=== PATIENT | female | born 1955 | race Caucasian/White ===

== ENCOUNTER → 2016-06-29 | Outpatient (CLI) | payer OTHER ==
--- NOTE | 2016-06-29 15:13 | REP ---
LEFT TOES, THREE VIEWS: HISTORY: Contusion. There is no acute fracture or dislocation. The joint spaces are normal in appearance. IMPRESSION: There is no acute fracture or dislocation. Signed by Amaury Pereira MD 06/29/2016 03:22 P
== END ==
LOC: M WUC 14:29
PROVIDERS: ATTEND Physician Assistant
DX: S90.122A Contusion of left lesser toe(s) without damage to nail, initial encounter (principal); X58.XXXA Exposure to other specified factors, initial encounter; Y92.9 Unspecified place or not applicable; Y93.9 Activity, unspecified; Y99.9 Unspecified external cause status

== ENCOUNTER → 2017-10-20 | Outpatient (CLI) | payer OTHER | LOC: M ONCR 10:03 | DX: C50.911 Malignant neoplasm of unspecified site of right female breast (principal) | CPT/HCPCS: G0463 ==

== ENCOUNTER → 2018-03-07 | Outpatient (CLI) | payer OTHER | LOC: M ONCR 13:41 | DX: C50.911 Malignant neoplasm of unspecified site of right female breast (principal) ==

== ENCOUNTER → 2018-03-16 | Outpatient (CLI) | payer OTHER ==
[~2018-03-16] MED LIST: ASPI1TAB15 PO; BUSP15TA47 PO; DEXA0.5E2 PO; DULO1CAP3 PO; HYDR25OIN TOP; IMOD2TAB16 PO; LANS30TA5 PO; LETR2.5T2 PO; LISI10TA4 PO; LOMO2.5T PO; LORA-243 PO; SIMV20TA2 PO
--- NOTE | 2018-03-23 13:44 | DEXA ---
AP SPINE L1 - L4 1.510 2.5 3.8 LT FEMUR TOTAL 1.148 1.1 2.1 LT NECK 0.925 -0.8 0.5 RT FEMUR TOTAL 1.216 1.6 2.6 RT NECK 1.004 -0.2 1.0 TOTAL BODY TOTAL OTHER COMMENTS: Normal bone densitometry of the spine and hips. The density of the spine has increased 1.0% since 09/30/2011. The density of the left hip has decreased 5.3% since 09/30/2011. The density of the right hip has decreased 0.7% since 09/30/2011. FOLLOW-UP: Recommendation for the next bone density exam: 5 years. RUBINA
== END ==
LOC: M WHC 10:15
PROVIDERS: ATTEND Internal Medicine Medical Oncology
DX: C50.111 Malignant neoplasm of central portion of right female breast (principal); Z79.811 Long term (current) use of aromatase inhibitors

== ENCOUNTER → 2018-04-27 | Outpatient (RCR) | payer OTHER ==
--- NOTE | 2018-03-30 15:25 | RADONC ---
RADIATION ONCOLOGY SIMULATION NOTE: DATE: 03/30/2018 CHART NUMBER: [id number] Ms. Farzaneh Hayes was taken to the CT scan for CT simulation of her right breast and supraclavicular carrasquillo. CT was accomplished without difficulty or discomfort. Radiation treatment planning is underway and radiation treatments will begin subsequently. An immobilization device was created and be used throughout the course of treatment. It was created without difficulty or discomfort. I was physically present throughout the course of CT simulation. [facility]
--- NOTE | 2018-04-18 10:52 | RADONC ---
RADIATION ONCOLOGY PROGRESS NOTE DATE OF SERVICE: 04/17/2018 CHART NUMBER: [id number]. PROGRESS NOTE: Ms. Farzaneh Hayes is presently at a dose of 540 cGy to her right breast and is tolerating treatments quite well at this point with no complaints related to her radiation therapy. She is having no breast or bone pain. REVIEW OF SYSTEMS: The patient's review of systems is noncontributory. She denies nausea, vomiting, fevers, chills, night sweats, diplopia, headaches, anxiety or depression, anorexia, weight loss, visual disturbances, chest pain, urinary or bowel difficulties, bone pain, or neurological problems. PHYSICAL EXAM: The patient's skin is in good condition with no evidence of radiation change present. There is no moist or dry desquamation. The remainder of her physical exam remains unchanged. Ms. Farzaneh Hayes is tolerating her treatments quite well, and radiation will continue as scheduled.
--- NOTE | 2018-04-24 11:44 | RADONC ---
RADIATION ONCOLOGY PROGRESS NOTE DATE OF SERVICE: 04/24/2018 CHART NUMBER: [id number]. PROGRESS NOTE: Ms. Farzaneh Hayes is presently at a dose of 1440 cGy to her right breast and is tolerating treatments quite well at this point with no significant complaints related to her radiation therapy other than some nipple tenderness. REVIEW OF SYSTEMS: The patient's review of systems is positive for nipple tenderness but is otherwise noncontributory. She denies nausea, vomiting, fevers, chills, night sweats, diplopia, headaches, anxiety or depression, anorexia, weight loss, visual disturbances, chest pain, urinary or bowel difficulties, bone pain, or neurological problems. PHYSICAL EXAM: The patient's skin is in good condition with no evidence of moist or dry desquamation. The remainder of her physical exam remains unchanged. Ms. Farzaneh Hayes is tolerating treatments quite well, and radiation will continue as scheduled.
== END ==
LOC: M ONCR 03-30 08:13
PROVIDERS: ATTEND Radiology Radiation Oncology
DX: C50.111 Malignant neoplasm of central portion of right female breast (principal)

== ENCOUNTER → 2018-05-25 | Outpatient (RCR) | payer OTHER ==
--- NOTE | 2018-05-01 16:24 | RADONC ---
RADIATION ONCOLOGY PROGRESS NOTE DATE: 05/01/2018 CHART NUMBER: [id number] PROGRESS NOTE: Ms. Farzaneh Hayes is presently at a dose of 1980 cGy to her right breast and is tolerating treatments quite well at this point with no complaints related to her radiation therapy. She is having no breast or bone pain. REVIEW OF SYSTEMS: The patient's review of systems is noncontributory. Denies nausea, vomiting, fevers, chills, night sweats, diplopia, headaches, anxiety or depression, anorexia, weight loss, visual disturbances, chest pain, urinary or bowel difficulties, bone pain, or neurological problems. PHYSICAL EXAMINATION: The patient's skin is in good condition with no evidence of moist or dry desquamation. The remainder of her physical exam remains unchanged. Ms. Farzaneh Hayes is tolerating treatments quite well and radiation will continue as scheduled.
--- NOTE | 2018-05-09 14:04 | RADONC ---
DATE: 05/08/2018 CHART NUMBER: [id number] Mrs. Hancock is currently receiving radiotherapy to the right breast for a diagnosis of stage IA woman with breast cancer and is currently at a dose of 2080 cGy of an anticipated 4860 cGy. This will be followed by an additional 1200 cGy to the partial mastectomy site. Thus far, the treatments are going quite well although the skin does show a 1-2+ hyper erythematous blush without any focal desquamation. The patient's breasts are somewhat pendulous and for the last several days she has been advised to not wear a bra. She is also putting some Telfa pads in the inframammary fold to avoid undue friction in that area. Her energy level is slightly diminished but she is still able to maintain most day-to-day activities without any alteration of her lifestyle. The remainder of the review of systems is essentially negative as she denies any other constitutional issues such as coughing, sputum production, hemoptysis, abdominal pain. EXAMINATION FINDINGS: The skin within the irradiated volume shows a 1-2+ erythematous blush without focal desquamation. The remainder of the physical examination is unchanged. IMPRESSION: Tolerating therapy relatively well. PLAN: Treatments to continue.
--- NOTE | 2018-05-16 19:39 | RADONC ---
RADIATION ONCOLOGY PROGRESS NOTE DATE OF SERVICE: 05/15/2018 CHART NUMBER: [id number]. PROGRESS NOTE: Tina Hayes is currently receiving local regional radiotherapy to the right breast for a diagnosis of stage IA breast cancer. Her current dose of radiotherapy is 3780 cGy of an anticipated 4860 cGy, and she is tolerating her therapy reasonably well with the exception of skin irritation. She has a marked hyper erythematous blush with small areas of focal desquamation in the inframammary fold. The nipple is quite erythematous. She uses Telfa pads involving the inframammary fold to avoid undue friction in that area. She applies silvadene to the affected skin and Aquaphor to the nipple area. The remainder of the review of systems reveals that she has no significant fatigue, nausea, vomiting, coughing, sputum production, hemoptysis, neurologic deficits, headache, anxiety or depression, abdominal problems, or genitourinary issues. EXAMINATION: The skin within the irradiated volume shows a brisk erythematous area with some focal moist desquamation in the inframammary fold. The nipple area also reveals quite erythematous and somewhat swollen skin with no significant focal breakdown. The remainder of the physical examination is unchanged. IMPRESSION: Tolerating therapy well. PLAN: Treatments to continue. MTDD
--- NOTE | 2018-05-23 07:55 | RADONC ---
RADIATION ONCOLOGY PROGRESS NOTE DATE OF SERVICE: 05/22/2018 CHART #: [id number] Ms. Moy is presently at a dose of 4680 cGy to her right breast and is tolerating treatments quite well at this point with no significant difficulties related to her radiation therapy. She has had no breast or bone pain. REVIEW OF SYSTEMS: The patient's review of systems is noncontributory. Denies nausea, vomiting, fevers, chills, night sweats, diplopia, headaches, anxiety or depression, anorexia, weight loss, visual disturbances, chest pain, urinary or bowel difficulties, bone pain, or neurological problems. PHYSICAL EXAMINATION: The patient's skin is in good condition with no evidence of moist or dry desquamation. The remainder of her physical exam remains unchanged. Ms. Moy is tolerating treatments quite well and radiation will continue as scheduled.
[~2018-05-25] MED LIST changes: +SILV1CRE60 TOP
== END ==
LOC: M ONCR 05-01 08:53
PROVIDERS: ATTEND Radiology Radiation Oncology
DX: C50.111 Malignant neoplasm of central portion of right female breast (principal)

== ENCOUNTER 2018-05-31 08:51 | Outpatient (RCR) | payer OTHER ==
--- NOTE | 2018-05-30 09:55 | RADONC ---
RADIATION ONCOLOGY PROGRESS NOTE DATE: 05/29/2018 CHART NUMBER: [id number] Ms. Farzaneh Hayes is presently at a dose of 5660 cGy to her primary site boost field and is tolerating treatments quite well at this point with no complaints related to her radiation therapy. She is having no significant skin or bone pain. REVIEW OF SYSTEMS: The patient's review of systems is noncontributory. She denies nausea, vomiting, fevers, chills, night sweats, diplopia, headaches, anxiety or depression, anorexia, weight loss, visual disturbances, chest pain, urinary or bowel difficulties, bone pain, or neurological problems. PHYSICAL EXAMINATION: The patient's skin is in good condition with no evidence of moist or dry desquamation. The remainder of her physical exam remains unchanged. Ms. Farzaneh Hayes is tolerating her treatments quite well and radiation will continue as scheduled.
--- NOTE | 2018-05-31 10:33 | RADONC ---
RADIATION ONCOLOGY TREATMENT SUMMARY DATE: 05/31/2018 CHART NUMBER: [id number] DIAGNOSIS: Right breast cancer. STAGE: IA, T1c, N1a, M0, grade 2, ER positive, ME positive, HER2/stephanie negative. ECOG PERFORMANCE STATUS: 0. TREATMENT SUMMARY: Ms. 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 We treated the patient to her right breast and lymph node drainage sites for a dose of 4860 cGy delivered in 27 fractions of 180 cGy each over 40 elapsed days from 04/13/2018 through 05/23/2018. The patient's right breast was treated on a linear accelerator utilizing a combination of 15X and 6X photons. A 3-D conformal technique was utilized with medial and lateral tangential carrasquillo. In addition the right supraclavicular and axillary region was treated utilizing a 3-D technique with anterior oblique and PA carrasquillo. Six MV photons were used on the anterior field and 15 MV photons were used on the posterior field. Following completion of 4860 cGy to the entire breast the primary site was boosted for an additional 1200 cGy delivered in six fractions of 200 cGy each from 05/24/2018 through 05/31/2018. The primary site boost was treated on a linear accelerator utilizing a 16 MeV electron beam prescribed to the 90% isodose line via en phos technique. This brought the primary site to a total dose of 6060 cGy delivered in 33 fractions over 48 elapsed days from 04/13/2018 through 05/31/2018. Ms. Farzaneh Hayes tolerated her treatments quite well and was able to complete therapy as prescribed without interruption. I have scheduled the patient to see me again in 1 month for further followup. She will also continue to be followed by her other physicians as well. Thank you for allowing us to participate in the care of this very pleasant woman. If I could be of any further assistance or provide you with any information, please free to contact me anytime. cc: MD Sierra White NP Joel Yellin, MD
== END 2018-06-25 ==
LOC: M ONCR 08:51
PROVIDERS: ATTEND Radiology Radiation Oncology
DX: C50.111 Malignant neoplasm of central portion of right female breast (principal)

== ENCOUNTER → 2018-07-05 | Outpatient (CLI) | payer OTHER ==
--- NOTE | 2018-07-05 11:09 | RADONC ---
RADIATION ONCOLOGY FOLLOWUP NOTE DATE: 07/05/2018 CHART NUMBER: [id number] DIAGNOSIS: Right breast cancer. STAGE: I A, T1c, N1a, M0, grade 2, ER positive, AR positive, HER2/stephanie negative. ECOG PERFORMANCE STATUS: 0 FOLLOWUP NOTE: Ms. 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 The patient presented today reporting that she is doing quite well with no complaints at this time related to her radiation therapy or disease. She has no breast or bone pain. REVIEW OF SYSTEMS: The patient's review of systems is noncontributory. Denies nausea, vomiting, fevers, chills, night sweats, diplopia, headaches, anxiety or depression, anorexia, weight loss, visual disturbances, chest pain, urinary or bowel difficulties, bone pain, or neurological problems. PHYSICAL EXAMINATION: The patient is a well-developed, well-nourished, 63-year-old white female, in no acute distress. HEENT exam is normocephalic, atraumatic. Extraocular movements are intact. There is no palpable cervical, supraclavicular, infraclavicular, axillary, or inguinal lymphadenopathy present. Lungs are clear to auscultation and percussion. Heart has a regular rate and rhythm. Abdomen is benign with no hepatosplenomegaly, masses, or tenderness. Breast examination reveals no masses or discharge bilaterally. Skeletal examination reveals no tenderness to pressure or percussion of the bony skeleton. Extremities reveal no clubbing, cyanosis, or edema. Neurologic exam is grossly intact, as is the remainder of the physical examination. ASSESSMENT: The patient is clinically BASHIR at this time and will be seen by us again in September following her routine screening mammography. She will also continue to be followed by her other physicians in the meantime. cc: FLAVIA Dey MD Joel Yellin, MD
== END ==
LOC: M ONCR 08:51
PROVIDERS: ATTEND Radiology Radiation Oncology
DX: C50.111 Malignant neoplasm of central portion of right female breast (principal)

== ENCOUNTER → 2018-10-02 | Outpatient (CLI) | payer OTHER ==
[~2018-10-02] MED LIST changes: -DULO1CAP3 PO; +DULO1CAP6 PO
--- NOTE | 2018-10-02 17:35 | REPMRS ---
Patient History The patient states she had a clinical breast exam in June 2018.Patient is postmenopausal, has history of cancer in the right breast at age 62, and is nulliparous. Family history of unknown cancer at age 72 in maternal grandfather, unknown cancer at age 82 in maternal grandmother, unknown cancer at age 84 in maternal aunt. Took hormonal contraceptives for 11 months. Taking tamoxifen for 3 months. Digital Mammo Screening Bilat: October 02, 2018 - Exam #: [id number] Bilateral CC and MLO view(s) were taken. Technologist: Karolina Caceres, Technologist Prior study comparison: 2018, diagnostic bilateral mammo, performed at [facility]. 2016, digital mammo diagnostic bilateral, performed at [facility]. May 22, 2013, left breast digital mammo diagnostic unilateral performed at [facility]. May 11, 2013, bilateral bilat screen digital mammo, performed at [facility] ([facility] FINDINGS: There are scattered fibroglandular densities. There are stable treatment changes in the right breast. There has been no other change in the appearance of the mammogram from the prior studies. There is a mild amount of scattered fibroglandular density which is fairly symmetric. There is no interval development of dominant mass, architectural distortion, or grouped microcalcification suggestive of malignancy. 3-D tomosynthesis shows no additional findings. Assessment: BI-RADS/ACR category 2 mammogram. Benign Findings. Recommendation Routine screening mammogram of both breasts in 1 year (for women over age 40). This mammogram was interpreted with the aid of an FDA-approved computer-aided dectection system. Electronically Signed By: Casey Lewis MD 10/02/18 [id number]
== END ==
LOC: M RAD 08:57
PROVIDERS: ATTEND Radiology Radiation Oncology
DX: Z12.31 Encounter for screening mammogram for malignant neoplasm of breast (principal); Z78.0 Asymptomatic menopausal state; Z85.3 Personal history of malignant neoplasm of breast; Z92.0 Personal history of contraception

== ENCOUNTER → 2019-10-04 | Outpatient (CLI) | payer OTHER ==
[~2019-10-04] MED LIST changes: +ASPI-546 PO; -ASPI1TAB15 PO; +D31000TA2 PO; +MULTCAP PO; +PRESCAP PO; -SIMV20TA2 PO; +SIMV20TA22 PO
--- NOTE | 2019-10-04 12:53 | REPMRS ---
Patient History The patient states she had a clinical breast exam in May 2019. Family history of unknown cancer at age 72 in maternal grandfather, unknown cancer at age 82 in maternal grandmother, unknown cancer at age 84 in maternal aunt. Malignant lumpectomy of the right breast, September 21, 2017. Chemotherapy, 2018. Radiation therapy of the right breast, 2018. Took hormonal contraceptives for 11 months. Taking tamoxifen for 3 months. 3D TOMOSYNTHESIS WAS PERFORMED. VOLPARA DENSITY B. Digital Woman Screen Mammo: October 04, 2019 - Exam #: [id number] Bilateral CC and MLO view(s) were taken. Technologist: Karolina Caceres, Technologist Prior study comparison: October 02, 2018, bilateral digital mammo screening bilat, performed at [facility]. 2018, diagnostic bilateral mammo, performed at [facility]. FINDINGS: There are scattered fibroglandular densities. There has been no change in the appearance of the mammogram from the prior studies. There is a mild amount of residual fibroglandular tissue which is fairly symmetric. There is no interval development of dominant mass, architectural distortion, or clustered microcalcification suggestive of malignancy. Assessment: BI-RADS/ACR category 1 mammogram. Negative Mammogram. Recommendation Routine screening mammogram in 1 year (for women over age 40). This mammogram was interpreted with the aid of an FDA-approved computer-aided dectection system. Electronically Signed By: Chris Gresham MD 10/04/19 [id number]
== END ==
LOC: M WHC 11:03
PROVIDERS: ATTEND Internal Medicine Hematology & Oncology
DX: Z12.31 Encounter for screening mammogram for malignant neoplasm of breast (principal); Z85.3 Personal history of malignant neoplasm of breast; Z92.21 Personal history of antineoplastic chemotherapy; Z92.3 Personal history of irradiation

== ENCOUNTER → 2020-05-06 | Outpatient (CLI) | payer SELFPAY ==
[~2020-05-06] MED LIST changes: +LISI10TA22 PO; -LISI10TA4 PO
== END ==
LOC: M LABSMTC 10:03
PROVIDERS: ATTEND Pediatrics
DX: Z20.822 Contact with and (suspected) exposure to COVID-19 (principal)

== ENCOUNTER → 2020-05-28 | Outpatient (CLI) | payer OTHER ==
--- NOTE | 2020-05-28 09:58 | DEXAMM ---
INDICATION: OSTEOPENIA,HX BREAST CA. COMPARISON: 03/16/2018, 09/30/2011. TECHNIQUE: Bone density was measured using dual-energy x-ray absorptiometry (DEXA). FINDINGS: AP SPINE L1-L4 BMD 1.428 g/cm2 Young Adult T-Score 1.9 Age Matched Z-Score 3.3. LT FEMUR, TOTAL BMD 1.096 g/cm2 Young Adult T-Score 0.7 Age Matched Z-Score 1.8. LT NECK BMD 0.888 g/cm2 Young Adult T-Score -1.1 Age Matched Z-Score 0.3. RT FEMUR, TOTAL BMD 1.161 g/cm2 Young Adult T-Score 1.2 Age Matched Z-Score 2.3. RT NECK BMD 0.958 g/cm2 Young Adult T-Score -0.6 Age Matched Z-Score 0.8. IMPRESSION: There is normal bone density of the spine. There is low bone density of the left hip. There is normal bone density of the right hip. The density of the spine has decreased 4.5% since the initial exam on 09/30/2011. The density of the spine decreased 5.4% since most recent exam on 03/16/2018. The density of the left hip has decreased 9.6% since initial exam on 09/30/2011. The density of the left hip has decreased 4.5% since most recent exam on 03/16/2018. The density of the right hip has decreased 5.1% since the initial exam on 09/30/2011. The density of the right hip has decreased 4.5% since the most recent exam on 03/16/2018. FOLLOW-UP: Recommendation for the next bone density exam: 2 years. <Electronically signed by Chris Gresham > 05/28/20 [id number]
== END ==
LOC: M WHC 08:14
PROVIDERS: ATTEND Internal Medicine Medical Oncology
DX: M85.88 Other specified disorders of bone density and structure, other site (principal); Z85.3 Personal history of malignant neoplasm of breast

== ENCOUNTER → 2020-06-04 | Outpatient (CLI) | payer OTHER ==
--- NOTE | 2020-06-04 13:21 | REP ---
INDICATION: RIGHT BREAST CA, PAIN. COMPARISON: None. TECHNIQUE/RADIOTRACER AND DOSE: Following the intravenous administration of 22 mCi technetium 99 MDP, patient's whole-body is imaged in the anterior and posterior projections with additional oblique and lateral views obtained. FINDINGS: There is no compelling scintigraphic evidence of osseous metastases. Mild increased uptake along the lateral margin of the greater trochanter of the proximal left femur is likely reactive from tendinitis at that location. There is mild arthritic uptake in the bilateral knees and feet. Renal and bladder activity are seen. IMPRESSION: No compelling scintigraphic evidence of osseous metastases. <Electronically signed by Chris Gresham > 06/04/20 [id number]
== END ==
LOC: M RAD 08:48
PROVIDERS: ATTEND Internal Medicine Medical Oncology
DX: C50.919 Malignant neoplasm of unspecified site of unspecified female breast (principal)
CPT/HCPCS: 78306; A9503

== ENCOUNTER 2020-09-16 14:01 | Day surgery (SDC) | payer OTHER ==
[~2020-09-16] VITALS: Ht 157.5 cm; Wt 102.1 kg
[~2020-09-16 14:01] MED LIST changes: +CALTTAB6 PO; +LANS30CA93 PO; +NS 1,000 ML IV ONE; +WOMETAB PO
[2020-09-16] MEDS ORDERED: propofoL 200 MG/20 ML VIAL As Ordered ONE ×2 (14:26→14:28)
[2020-09-16] MEDS ORDERED: LIDOCAINE 2% 100MG/5ML SDV (FOR ANES.) As Ordered ONE (14:26)
--- NOTE | 2020-09-16 14:50 | ROOR ---
Patient Name: Tina Moy-maloney Procedure Date: 09/16/2020 2:27 PM Date of : 1955 Age: 65 Room: [facility] Gender: Female Note Status: Finalized Procedure: Colonoscopy Indications: Screening for colorectal malignant neoplasm Providers: Drake Kim MD Referring MD: Keshia Peterson NP Requesting Provider: Medicines: Monitored Anesthesia Care Complications: No immediate complications. Procedure: Pre-Anesthesia Assessment: - The heart rate, respiratory rate, oxygen saturations, blood pressure, adequacy of pulmonary ventilation, and response to care were monitored throughout the procedure. The Colonoscope was introduced through the anus and advanced to the terminal ileum, with identification of the appendiceal orifice and IC valve. The colonoscopy was performed without difficulty. The patient tolerated the procedure well. The quality of the bowel preparation was good. Findings: The perianal and digital rectal examinations were normal. Four sessile polyps were found in the sigmoid colon and ascending colon. The polyps were diminutive in size. These polyps were removed with a cold snare. Resection and retrieval were complete. A few diverticula were found in the sigmoid colon. Small Internal Hemorrhoids. The exam was otherwise without abnormality on direct and retroflexion views. Impression: - Four diminutive polyps in the sigmoid colon and in the ascending colon, removed with a cold snare. Resected and retrieved. - Diverticulosis in the sigmoid colon. - Small Internal Hemorrhoids. - The examination was otherwise normal on direct and retroflexion views. Recommendation: - Repeat colonoscopy in 3 - 5 years for surveillance. - Telephone endoscopist for pathology results in 2 weeks. Procedure Code(s): --- Professional --- 93873, Colonoscopy, flexible; with removal of tumor(s), polyp(s), or other lesion(s) by snare technique Diagnosis Code(s): --- Professional --- K57.30, Diverticulosis of large intestine without perforation or abscess without bleeding K63.5, Polyp of colon Z12.11, Encounter for screening for malignant neoplasm of colon CPT copyright 2019 [employer]. All rights reserved. The codes documented in this report are preliminary and upon annual greenhouse manager review may be revised to meet current compliance requirements. Drake Kim MD Drake Kim MD 09/16/2020 2:49:32 PM Electronically signed by Drake Kim MD Number of Addenda: 0 Note Initiated On: 09/16/2020 2:27 PM Estimated Blood Loss: Estimated blood loss: none.
[2020-09-16 15:16] VITALS: BP 118/71
== END 2020-09-16 15:17 | disposition home or self-care (01) ==
LOC: M OPP 14:01
PROVIDERS: ATTEND Internal Medicine Gastroenterology
DX: Z12.11 Encounter for screening for malignant neoplasm of colon (principal); K63.5 Polyp of colon; K57.30 Diverticulosis of large intestine without perforation or abscess without bleeding; K64.8 Other hemorrhoids; Z79.899 Other long term (current) drug therapy; Z88.5 Allergy status to narcotic agent; Z85.3 Personal history of malignant neoplasm of breast; Z92.21 Personal history of antineoplastic chemotherapy; Z92.3 Personal history of irradiation; Z87.891 Personal history of nicotine dependence

== ENCOUNTER → 2020-10-06 | Outpatient (CLI) | payer OTHER ==
[~2020-10-06] MED LIST changes: +CEPH500C PO; -NS 1,000 ML IV ONE
== END ==
LOC: M WHC 12:45
PROVIDERS: ATTEND Internal Medicine Medical Oncology
DX: Z12.31 Encounter for screening mammogram for malignant neoplasm of breast (principal)

== ENCOUNTER 2020-12-15 17:24 | Emergency (ER) | payer OTHER ==
[~2020-12-15 17:24] MED LIST changes: -CEPH500C PO
[2020-12-15] MEDS ORDERED: KETOROLAC 30 MG/ML 1ML VIAL IV ONE (17:50)
[2020-12-15 18:31] LABS: BASO # 0.1 10^3/uL (0.0-0.2); BASO % 0.7 % (0.0-1.0); EOS # 0.3 10^3/uL (0.0-0.5); EOS % 3.2 % (0.0-3.0); HEMATOCRIT 40.8 % (36.0-47.0); HEMOGLOBIN 13.2 g/dl (12.0-15.5); LYMPH # 2.4 10^3/uL (1.5-5.0); LYMPH % 24.7 % (24.0-44.0); MEAN CORPUSCULAR HEMOGLOBIN 26.5 pg (27.0-33.0); MEAN CORPUSCULAR HGB CONC 32.4 g/dl (32.0-36.5); MEAN CORPUSCULAR VOLUME 81.8 fl (80.0-96.0); MONO # 0.7 10^3/uL (0.0-0.8); MONO % 7.2 % (2.0-8.0); NEUTROPHILS # 6.1 10^3/uL (1.5-8.5); NEUTROPHILS % 63.6 % (36.0-66.0); PLATELET COUNT, AUTOMATED 217 10^3/uL (150-450); RED BLOOD COUNT 4.99 10^6/uL (4.00-5.40); WHITE BLOOD COUNT 9.6 10^3/uL (4.0-10.0)
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
[2020-12-15 18:44] LABS: ALBUMIN 3.7 GM/DL (3.2-5.2); ALT/SGPT 21 U/L (12-78); BILIRUBIN,TOTAL 0.3 MG/DL (0.2-1.0); BLOOD UREA NITROGEN 17 MG/DL (7-18); CALCIUM LEVEL 9.5 MG/DL (8.8-10.2); CARBON DIOXIDE LEVEL 27 MEQ/L (21-32); CHLORIDE LEVEL 106 MEQ/L (98-107); CK-MB VALUE MASS < 1.0 NG/ML (<3.6); CPK CREATINE PHOSPHOKINASE 49 U/L (26-192); CREATININE FOR GFR 0.83 MG/DL (0.55-1.30); ETHYL ALCOHOL (ETHANOL) < 0.003 % (0.000-0.010); GLOMERULAR FILTRATION RATE > 60.0 (>45); GLUCOSE, FASTING 114 MG/DL (70-100); LIPASE 167 U/L (73-393); MAGNESIUM LEVEL 2.1 MG/DL (1.8-2.4); MB/CK RELATIVE INDEX 2.04 (< OR =4); SODIUM LEVEL 140 MEQ/L (136-145); TOTAL PROTEIN 6.7 GM/DL (6.4-8.2); TROPONIN I < 0.02 NG/ML (< 0.10)
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
[2020-12-15] MEDS ORDERED: LIDOCAINE 2% W/EPINEPHRINE 20ML VIAL **PRES FREE INJ ONE (18:55)
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
[2020-12-15] MEDS ORDERED: NEOSPORIN OINT 0.9 GM PKT TOP ONE (21:35)
[2020-12-15] MEDS ORDERED: CEPH500C PO (23:05)
[2020-12-15 23:12] VITALS: BP 183/90
--- NOTE | 2020-12-16 13:54 | ECGEPIP ---
[facility] - ED Test Date: 2020-12-15 Pat Name: FRANCISCO MCKEON-HAINES Department: Room: - Gender: Female Javascript Ui Developer: [email or web address] : 1955 Requested By: LIVE Dove Order Number: [id number] Reading MD: Fransisca Soriano Measurements Intervals [place] Rate: 93 P: 59 MD: 132 QRS: 27 QRSD: 90 T: 41 QT: 356 QTc: 442 Interpretive Statements Normal sinus rhythm NSTTW abnormalities No prior Electronically Signed on 12-16-2020 13:54:28 EDT by Fransisca Soriano
== END 2020-12-15 23:16 | disposition home or self-care (01) ==
LOC: M ED 17:24 → EDBD 17:24 → M ED 23:16
DX: S81.011A Laceration without foreign body, right knee, initial encounter (principal); S61.511A Laceration without foreign body of right wrist, initial encounter; S70.12XA Contusion of left thigh, initial encounter; V13.4XXA Pedal cycle driver injured in collision with car, pick-up truck or van in traffic accident, initial encounter; M17.11 Unilateral primary osteoarthritis, right knee; Z88.6 Allergy status to analgesic agent
CPT/HCPCS: 12004; 70450; 70486; 72125; 72190; 73090; 73110; 73130; 73564; 73590; 80053; 82077; 82550; 82553; 83690; 83735; 84484; 85025; 93005; 96374; 99285; J1885

== ENCOUNTER 2020-12-19 14:05 | Emergency (ER) | payer OTHER ==
[~2020-12-19] VITALS: Ht 157.5 cm; Wt 108.2 kg
[~2020-12-19 14:05] MED LIST changes: +CEPH500C PO
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
[2020-12-19 20:19] VITALS: BP 180/77
== END 2020-12-19 20:28 | disposition home or self-care (01) ==
LOC: M ED 14:05
DX: S70.12XA Contusion of left thigh, initial encounter (principal); S74 Injury of nerves at hip and thigh level; V13.4XXA Pedal cycle driver injured in collision with car, pick-up truck or van in traffic accident, initial encounter; Y92.410 Unspecified street and highway as the place of occurrence of the external cause; Y93.9 Activity, unspecified; Y99.9 Unspecified external cause status; Z79.899 Other long term (current) drug therapy; Z88.5 Allergy status to narcotic agent

== ENCOUNTER → 2021-07-08 | Outpatient (CLI) | payer OTHER ==
[~2021-07-08] MED LIST changes: -D31000TA2 PO; +VITA100093 PO
== END ==
LOC: M WUC 10:18
PROVIDERS: ATTEND Registered Nurse
DX: M54.6 Pain in thoracic spine (principal); M19.011 Primary osteoarthritis, right shoulder

== ENCOUNTER → 2021-10-07 | Outpatient (CLI) | payer OTHER | LOC: M WHC 11:03 | PROVIDERS: ATTEND Nurse Practitioner Adult Health | DX: Z12.31 Encounter for screening mammogram for malignant neoplasm of breast (principal); Z78.0 Asymptomatic menopausal state; Z85.3 Personal history of malignant neoplasm of breast; Z92.21 Personal history of antineoplastic chemotherapy ==

== ENCOUNTER → 2021-10-19 | Outpatient (REF) | payer OTHER ==
[2021-10-19 18:27] LABS: FOLATE 15.1 NG/ML
== END ==
LOC: M LAB REF 14:27
PROVIDERS: ATTEND Registered Nurse
DX: R53.83 Other fatigue (principal); D64.9 Anemia, unspecified

== ENCOUNTER → 2021-12-20 | Outpatient (CLI) | payer OTHER ==
[~2021-12-20] MED LIST changes: +BUPR1TAB56; +prevagen PO
== END ==
LOC: M LABSMTC 11:16
PROVIDERS: ATTEND Anesthesiology
DX: Z01.812 Encounter for preprocedural laboratory examination (principal); Z20.822 Contact with and (suspected) exposure to COVID-19

== ENCOUNTER → 2022-04-15 | Outpatient (CLI) | payer MEDICARE, OTHER ==
[~2022-04-15] MED LIST changes: +ACE65ERTAB PO; -BUPR1TAB56; +BUPR1TAB56 PO; +DIPH-435 PO; +DULO1CAP4 PO
== END ==
LOC: M LABSMTC 10:57
PROVIDERS: ATTEND Anesthesiology
DX: Z01.812 Encounter for preprocedural laboratory examination (principal); Z11.52 Encounter for screening for COVID-19

== ENCOUNTER 2022-04-20 12:32 | Day surgery (SDC) | payer MEDICARE, OTHER ==
[~2022-04-20] VITALS: Ht 157.5 cm; Wt 112.4 kg
[~2022-04-20 12:32] MED LIST changes: +NS 1,000 ML IV ONE
[2022-04-20] MEDS ORDERED: propofoL 200 MG/20 ML VIAL As Ordered ONE ×2 (15:02→15:08)
[2022-04-20 15:31] VITALS: BP 129/63
== END 2022-04-20 15:33 | disposition home or self-care (01) ==
LOC: M OPP 12:32
PROVIDERS: ATTEND Internal Medicine Gastroenterology
DX: Z86.010 Personal history of colon polyps (principal); K64.8 Other hemorrhoids; Z79.899 Other long term (current) drug therapy; Z88.5 Allergy status to narcotic agent; K21.00 Gastro-esophageal reflux disease with esophagitis, without bleeding; I10 Essential (primary) hypertension; Z79.02 Long term (current) use of antithrombotics/antiplatelets; Z79.811 Long term (current) use of aromatase inhibitors; G47.33 Obstructive sleep apnea (adult) (pediatric); Z99.89 Dependence on other enabling machines and devices; Z85.3 Personal history of malignant neoplasm of breast; Z92.21 Personal history of antineoplastic chemotherapy; Z92.3 Personal history of irradiation; Z83.79 Family history of other diseases of the digestive system; Z87.891 Personal history of nicotine dependence

== ENCOUNTER → 2022-04-30 | Outpatient (CLI) | payer MEDICARE ==
[~2022-04-30] MED LIST changes: -NS 1,000 ML IV ONE
== END ==
LOC: M PLAIMG 16:20
PROVIDERS: ATTEND Internal Medicine
DX: M54.50 Low back pain, unspecified (principal); M47.816 Spondylosis without myelopathy or radiculopathy, lumbar region

== ENCOUNTER 2022-05-23 11:21 | Emergency (ER) | payer MEDICARE ==
[~2022-05-23] VITALS: Ht 157.5 cm; Wt 113.2 kg
[2022-05-23] MEDS ORDERED: NIRM1TAB (11:44)
[2022-05-23] MEDS ORDERED: ALBU8.5H (11:44)
[2022-05-23 12:00] LABS: BASO % 0.6 % (0.0-1.0); EOS # 0.3 10^3/uL (0.0-0.5); EOS % 6.3 % (0.0-3.0); HEMATOCRIT 38.7 % (36.0-47.0); LYMPH # 1.5 10^3/uL (1.5-5.0); LYMPH % 26.9 % (24.0-44.0); MEAN CORPUSCULAR HEMOGLOBIN 24.8 pg (27.0-33.0); MONO # 0.3 10^3/uL (0.0-0.8); MONO % 5.9 % (2.0-8.0); NEUTROPHILS # 3.2 10^3/uL (1.5-8.5); NEUTROPHILS % 59.6 % (36.0-66.0); PLATELET COUNT, AUTOMATED 206 10^3/uL (150-450); RED BLOOD COUNT 4.84 10^6/uL (4.00-5.40); WHITE BLOOD COUNT 5.4 10^3/uL (4.0-10.0)
[2022-05-23 12:29] LABS: CK-MB VALUE MASS < 1.0 NG/ML (<3.6)
[2022-05-23 12:31] LABS: ALBUMIN 3.4 G/DL (3.2-5.2); ALKALINE PHOSPHATASE 93 U/L (46-116); ALT/SGPT 22 U/L (7.0-40); AST/SGOT 22 U/L (<34); BILIRUBIN,DIRECT < 0.1 MG/DL (<0.4); BILIRUBIN,TOTAL 0.3 MG/DL (0.3-1.2); BLOOD UREA NITROGEN 15 MG/DL (9-23); CALCIUM LEVEL 8.9 MG/DL (8.3-10.6); CARBON DIOXIDE LEVEL 27 MMOL/L (20-31); CHLORIDE LEVEL 108 MMOL/L (98-107); CPK CREATINE PHOSPHOKINASE 37 U/L (34-145); CREATININE FOR GFR 0.71 MG/DL (0.55-1.30); GLOMERULAR FILTRATION RATE > 60.0 (>45); GLUCOSE, FASTING 113 MG/DL (74-106); POTASSIUM SERUM 3.7 MMOL/L (3.5-5.1); SODIUM LEVEL 143 MMOL/L (136-145); TOTAL PROTEIN 6.2 G/DL (5.7-8.2)
[2022-05-23 12:33] LABS: THYROID STIMULATING HORMONE 3.338 uIU/ML (0.55-4.78)
[2022-05-23 14:58] VITALS: BP 181/85
== END 2022-05-23 15:05 | disposition home or self-care (01) ==
LOC: M ED 11:21 → EDBD 11:21 → M ED 15:05
DX: I10 Essential (primary) hypertension (principal); U07.1 COVID-19; E78.5 Hyperlipidemia, unspecified; C50.919 Malignant neoplasm of unspecified site of unspecified female breast; Z88.5 Allergy status to narcotic agent; Z79.1 Long term (current) use of non-steroidal anti-inflammatories (NSAID); Z79.811 Long term (current) use of aromatase inhibitors; Z79.810 Long term (current) use of selective estrogen receptor modulators (SERMs); Z79.899 Other long term (current) drug therapy

== ENCOUNTER → 2022-11-04 | Outpatient (CLI) | payer MEDICARE ==
[~2022-11-04] MED LIST changes: +ALBU8.5H; +NIRM1TAB
== END ==
LOC: M WHC 10:35
PROVIDERS: ATTEND Internal Medicine Medical Oncology
DX: Z12.31 Encounter for screening mammogram for malignant neoplasm of breast (principal); Z85.3 Personal history of malignant neoplasm of breast

== ENCOUNTER → 2023-01-27 | Outpatient (CLI) | payer MEDICARE ==
[~2023-01-27] MED LIST changes: +LISI20TA33 PO
== END ==
LOC: M WHC 09:21
PROVIDERS: ATTEND Internal Medicine
DX: M85.89 Other specified disorders of bone density and structure, multiple sites (principal)

== ENCOUNTER → 2023-04-12 | Outpatient (CLI) | payer MEDICARE | LOC: M RAD 11:59 | PROVIDERS: ATTEND Internal Medicine | DX: R05.9 Cough, unspecified (principal) ==

== ENCOUNTER → 2023-06-03 | Outpatient (CLI) | payer MEDICARE | LOC: M RAD 15:46 | PROVIDERS: ATTEND Internal Medicine | DX: M54.31 Sciatica, right side (principal); M51.36 Other intervertebral disc degeneration, lumbar region ==

== ENCOUNTER → 2023-10-10 | Outpatient (CLI) | payer MEDICARE, BC ==
[~2023-10-10] MED LIST changes: +TELM1TAB33 PO
== END ==
LOC: M WUC 15:19
PROVIDERS: ATTEND Internal Medicine
DX: M25.569 Pain in unspecified knee (principal); M25.462 Effusion, left knee; M17.12 Unilateral primary osteoarthritis, left knee; Z98.890 Other specified postprocedural states

== ENCOUNTER → 2023-11-14 | Outpatient (REF) | payer MEDICARE, OTHER, BC | LOC: M LAB REF 16:15 | PROVIDERS: ATTEND Internal Medicine | DX: N39.0 Urinary tract infection, site not specified (principal) ==

== ENCOUNTER → 2024-01-17 | Outpatient (CLI) | payer MEDICARE | LOC: M WHC 15:09 | PROVIDERS: ATTEND Internal Medicine Medical Oncology | DX: Z12.31 Encounter for screening mammogram for malignant neoplasm of breast (principal); Z85.3 Personal history of malignant neoplasm of breast; R92.313 Mammographic fatty tissue density, bilateral breasts ==

== ENCOUNTER → 2024-04-03 | Outpatient (CLI) | payer MEDICARE | LOC: M PLAIMG 12:38 | PROVIDERS: ATTEND Internal Medicine | DX: R20.0 Anesthesia of skin (principal) ==

== ENCOUNTER → 2024-05-11 | Outpatient (REF) | payer MEDICARE ==
[2024-05-11 13:19] LABS: APPEARANCE, URINE CLEAR (CLEAR); BACTERIA, URINE AUTO 1+ (NEGATIVE); BILIRUBIN, URINE AUTO NEGATIVE (NEGATIVE); BLOOD, URINE BLOOD NEGATIVE (NEGATIVE); COLOR, URINE STRAW (YELLOW); GLUCOSE, URINE (UA) AUTO NEGATIVE (NEGATIVE); KETONE, URINE AUTO NEGATIVE (NEGATIVE); LEUKOCYTE ESTERASE, URINE AUTO 1+ (NEGATIVE); NITRITE, URINE AUTO NEGATIVE (NEGATIVE); PROTEIN, URINE AUTO NEGATIVE (NEGATIVE); RBC, URINE AUTO 1 /HPF (0-3); SPECIFIC GRAVITY URINE AUTO 1.005 (1.002-1.035); SQUAMOUS EPITHELIAL CELL UR AU 0 /HPF (0-6); UROBILINOGEN, URINE AUTO 0.2 mg/dL (0.0-2.0); WBC, URINE AUTO 15 /HPF (0-3)
== END ==
LOC: M LAB REF 12:55
PROVIDERS: ATTEND Physician Assistant
DX: N39.0 Urinary tract infection, site not specified (principal)

== ENCOUNTER 2024-05-29 14:03 | Emergency (ER) | payer MEDICARE ==
[~2024-05-29] VITALS: Ht 160 cm; Wt 111.9 kg
[2024-05-29 14:06] VITALS: BP 179/84; TEMP 98.1; O2SAT 94
== END 2024-05-29 20:29 | disposition left against medical advice (07) ==
LOC: M ED 14:03
DX: Z53.21 Procedure and treatment not carried out due to patient leaving prior to being seen by health care provider (principal)

== ENCOUNTER 2024-12-27 11:34 | Day surgery (SDC) | payer MEDICARE ==
[~2024-12-27] VITALS: Ht 157.5 cm; Wt 111.1 kg
[~2024-12-27 11:34] MED LIST changes: -ACE65ERTAB PO; +ACET-1593 PO; +AMOX875T; +BUPR15TASR PO; -BUPR1TAB56 PO; +BUPR200T45 PO; +BUSP15TA48 PO; +CRAN450T4 PO; +FLON1SPR; +MIDAZOLAM INJ 2 MG/2 ML VIAL As Ordered ONE; +MUCI1TAB16 PO; +PHENYLEPHRINE 10% OPHTH SOL 5ML OD PRN; +VITA100T59 PO
[2024-12-27] MEDS: CYCLOPENTOLATE 1% OPHTH SOLN 2 ML BTL OD SCH (14:22)
[2024-12-27] MEDS: PHENYLEPHRINE 2.5% OPHTH SOL 2ML OD SCH (14:22)
[2024-12-27] MEDS: LIDOCAINE 3.5% 1 ML OPHTH TOPICAL GEL OU ONE (14:22)
[2024-12-27] MEDS: OFLOXACIN 0.3 % (OCUFLOX) OPTH SOL 5ML OD ONE (14:22)
[2024-12-27] MEDS: TROPICAMIDE 1% OPHTH SOLN 15ML OD SCH (14:22)
[2024-12-27] MEDS: LIDOCAINE 1% SDV 5 ML VIAL As Ordered ONE (15:59)
[2024-12-27] MEDS: CEFUROXIME 1 MG/0.1 ML INTRACAMERAL INJ As Ordered ONE (15:59)
[2024-12-27 16:12] VITALS: BP 195/89; TEMP 96.5; O2SAT 94
== END 2024-12-27 16:24 | disposition home or self-care (01) ==
LOC: M SDC 11:34
PROVIDERS: ATTEND Ophthalmology
DX: H25.11 Age-related nuclear cataract, right eye (principal); I10 Essential (primary) hypertension; E78.5 Hyperlipidemia, unspecified; K21.9 Gastro-esophageal reflux disease without esophagitis; F41.9 Anxiety disorder, unspecified; F32.A Depression, unspecified; Z87.891 Personal history of nicotine dependence; Z85.3 Personal history of malignant neoplasm of breast; Z92.21 Personal history of antineoplastic chemotherapy; Z92.3 Personal history of irradiation; Z88.5 Allergy status to narcotic agent; G47.33 Obstructive sleep apnea (adult) (pediatric); Z79.899 Other long term (current) drug therapy
CPT/HCPCS: 66984; J0697; J2250; J3010; V2632

== ENCOUNTER 2025-01-03 09:55 | Day surgery (SDC) | payer MEDICARE ==
[~2025-01-03] VITALS: Ht 157.5 cm; Wt 109.4 kg
[~2025-01-03 09:55] MED LIST changes: -MIDAZOLAM INJ 2 MG/2 ML VIAL As Ordered ONE; -PHENYLEPHRINE 10% OPHTH SOL 5ML OD PRN; +PHENYLEPHRINE 10% OPHTH SOL 5ML OS PRN
[2025-01-03] MEDS ORDERED: MIDAZOLAM INJ 2 MG/2 ML VIAL As Ordered ONE (10:00)
[2025-01-03] MEDS: OFLOXACIN 0.3 % (OCUFLOX) OPTH SOL 5ML OS ONE (11:22)
[2025-01-03] MEDS: TROPICAMIDE 1% OPHTH SOLN 15ML OS SCH (11:23)
[2025-01-03] MEDS: PHENYLEPHRINE 2.5% OPHTH SOL 2ML OS SCH (11:23)
[2025-01-03] MEDS: CYCLOPENTOLATE 1% OPHTH SOLN 2 ML BTL OS SCH (11:23)
[2025-01-03] MEDS: LIDOCAINE 3.5% 1 ML OPHTH TOPICAL GEL OU ONE (11:23)
[2025-01-03] MEDS: BSS IRRIG/VANCO(10MG)/TOBRA(5MG)/EPINEPH(1:1000-0.5CC)500ML BAG-ORONLY As Ordered ONE (11:51)
[2025-01-03] MEDS: LIDOCAINE 1% SDV 5 ML VIAL As Ordered ONE (11:51)
[2025-01-03] MEDS: CEFUROXIME 1 MG/0.1 ML INTRACAMERAL INJ As Ordered ONE (11:51)
[2025-01-03 12:07] VITALS: BP 174/86; TEMP 97.1; O2SAT 97
== END 2025-01-03 12:20 | disposition home or self-care (01) ==
LOC: M SDC 09:55
PROVIDERS: ATTEND Ophthalmology
DX: H25.12 Age-related nuclear cataract, left eye (principal); I10 Essential (primary) hypertension; E78.5 Hyperlipidemia, unspecified; K21.9 Gastro-esophageal reflux disease without esophagitis; Z85.3 Personal history of malignant neoplasm of breast; Z92.21 Personal history of antineoplastic chemotherapy; Z92.3 Personal history of irradiation; F41.9 Anxiety disorder, unspecified; F32.A Depression, unspecified; Z88.5 Allergy status to narcotic agent; Z79.899 Other long term (current) drug therapy; Z87.891 Personal history of nicotine dependence; G47.33 Obstructive sleep apnea (adult) (pediatric)
CPT/HCPCS: 66984; 92015; J0697; J2250; J3010; V2632

== ENCOUNTER → 2025-01-17 | Outpatient (CLI) | payer MEDICARE ==
[~2025-01-17] MED LIST changes: -PHENYLEPHRINE 10% OPHTH SOL 5ML OS PRN
== END ==
LOC: M WHC 09:51
PROVIDERS: ATTEND Nurse Practitioner Women's Health
DX: Z12.31 Encounter for screening mammogram for malignant neoplasm of breast (principal); Z85.3 Personal history of malignant neoplasm of breast; Z79.899 Other long term (current) drug therapy; R92.313 Mammographic fatty tissue density, bilateral breasts; M85.852 Other specified disorders of bone density and structure, left thigh